=== PATIENT | male | born 1995 | race Caucasian/White ===

== ENCOUNTER 2018-03-03 15:47 | Outpatient (CLI) | payer OTHER ==
[2018-03-03 16:29] LABS: #Basophils 0.1 thou/uL (0.0-0.2); #Eosinphils 0.1 thou/uL (0.0-0.7); #Lymphocytes 2.8 thou/uL (1.20-3.40); #Monocytes 0.6 thou/uL (0.11-0.59); #Neutrophils 4.5 thou/uL (1.40-6.50); %Basophils 0.8 % (0.0-1.0); %Eosinophils 1.8 % (0.0-10.0); %Lymphocytes 34.2 % (28.0-48.0); %Monocytes 6.8 % (0.0-4.0); %Neutrophils 56.4 % (31.0-61.0); Hemoglobin 16.2 g/dL (14.0-18.0); Mean Corpuscular Hemoglobin 30.5 pg (25.0-35.0); Mean Corpuscular Volume 92.3 fL (78.0-98.0); Mean Platelet Volume 9.1 fL (7.4-10.4); Platelet Count 208 thou/uL (130-400); Red Blood Cell (RBC) Count 5.31 mill/uL (4.00-5.20); White Blood Cell (WBC) Count 8.1 thou/uL (4.8-10.8)
== END 2018-03-03 15:48 | disposition home or self-care (01) ==
LOC: LABBT 15:47
PROVIDERS: ATTEND Surgery
DX: Z01.812 Encounter for preprocedural laboratory examination (principal); K40.90 Unilateral inguinal hernia, without obstruction or gangrene, not specified as recurrent
CPT/HCPCS: 85025

== ENCOUNTER 2018-03-09 10:15 | Day surgery (SDC) | payer OTHER ==
[2018-03-03 16:00] VITALS: BMI 22.1
[2018-03-09] MEDS ORDERED: Midazolam HCl 2 mg/2 ml Vial ONE (11:33)
[2018-03-09] MEDS ORDERED: Bupivacaine/Epinephrine 0.25% 30 ML VIAL ONE (11:47)
[2018-03-09] MEDS ORDERED: Fentanyl 100 MCG/2 ML VIAL ONE (11:58)
[2018-03-09] MEDS ORDERED: Lidocaine 1% PF 5 ML VIAL ONE (15:02)
[2018-03-09] MEDS ORDERED: Dexamethasone 20 MG/5 ML VIAL ONE (15:02)
[2018-03-09] MEDS ORDERED: Ondansetron PF 4 MG/2 ML Vial ONE (15:02)
[2018-03-09] MEDS ORDERED: PROPOFOL 200 MG/20 ML VIAL ONE (15:02)
--- NOTE | 2018-03-09 16:53 | OP ---
PREOPERATIVE DIAGNOSIS: Left inguinal hernia. SURGEON: David Fink M.D. PROCEDURE PERFORMED: Left inguinal hernia repair with mesh. INDICATIONS: A 22-year-old male with a painful left groin bulge and found to have a hernia. FINDINGS: Left indirect inguinal hernia. PROCEDURE IN DETAIL: After informed consent was obtained, the patient was taken to the operating [facility] m and given general endotracheal anesthesia, was placed in the supine position. The abdomen was prep ped and draped in usual fashion. Local anesthesia was infiltrated subcutaneously and deep. A transv erse left inguinal incision was performed. The subcu divided sharply. The fascia of the external ob lique was incised in direction of its fibers through the external ring. Spermatic cord isolated with a Caret drain. Cremasteric fibers were . There was an indirect sac. This was from surrounding cord structures down to the internal ring and reduced. Reduction maintained with P HS hernia system. Posterior layer was placed in the preperitoneal space. Anterior was laid out, sut ured to the pubic tubercle medially, tucked under the external oblique fascia laterally. A notch was cut out for the spermatic cord. Hemostasis was assured. The cord placed anatomic. The external ob lique fascia closed with a running 3-0 Vicryl. Anu's closed with interrupted 3-0 Vicryl and skin closed with a running subcuticular 4-0 Rapide. Steri-Strips applied. Sterile bandage applied. The patient tolerated the procedure well and was transferred to recovery in good condition. Sponge and n eedle count verified correct x2.
== END 2018-03-09 15:35 | disposition home or self-care (01) ==
LOC: SDC 10:15
PROVIDERS: ATTEND Surgery
PROC: 0YU60JZ Supplement Left Inguinal Region with Synthetic Substitute, Open Approach (ICD-10-PCS; principal; 2018-03-09)
DX: K40.90 Unilateral inguinal hernia, without obstruction or gangrene, not specified as recurrent (principal)
CPT/HCPCS: C1781; J1100; J2001; J2250; J2405; J2704; J3010